=== PATIENT | female | born 1980 | race Caucasian/White ===

== ENCOUNTER → 2016-07-28 12:50 | Outpatient (CLI) | payer MEDICAID | END | disposition home or self-care (01) | LOC: D.RAD 12:50 | DX: M54.2 Cervicalgia (principal) ==

== ENCOUNTER → 2016-11-07 09:46 | Outpatient (CLI) | payer MEDICAID | END | disposition home or self-care (01) | LOC: D.MRI 10-31 15:30 | DX: M54.12 Radiculopathy, cervical region (principal) ==

== ENCOUNTER 2018-11-08 23:41 | Emergency (ER) | payer MEDICAID ==
[2018-11-08 23:54] VITALS: BP 111/76; BMI 20.9
[2018-11-08] MEDS ORDERED: KLONOPIN1 MG PO (23:57)
[2018-11-08] MEDS ORDERED: ZANTAC300 MG PO (23:57)
[2018-11-09 00:50] LABS: BASOPHILS 0.4 % (0-2); EOSINOPHILS 3.3 % (0-7); HEMATOCRIT 37.7 % (36.0-48.0); IMMATURE GRANULOCYTES 0.2 % (0-5); LYMPHOCYTES 35.1 % (15-50); MCHC 34.5 g/dL (31.0-37.0); MEAN PLATELET VOLUME 10.1 fL (7.4-10.4); MONOCYTES 8.1 % (2-11); NEUTROPHILS 52.9 % (40-80); PLATELET COUNT 264 10x3/uL (130-400); RBC 4.19 10x6/uL (4.00-5.40); WBC 9.9 10x3/uL (4.8-10.8)
[2018-11-09 01:09] LABS: ALKALINE PHOSPHATASE 38 U/L (46-116); ALT (SGPT) 11 U/L (10-68); BILIRUBIN - TOTAL 0.41 mg/dL (0.2-1.3); CALC OSMOLALITY 280 mosm/kg (275-300); CALCIUM 9.2 mg/dL (8.5-10.1); CARBON DIOXIDE 23.6 mmol/L (21.0-32.0); CHLORIDE - SERUM 105 mmol/L (98-107); CREATININE - SERUM 0.8 mg/dL (0.6-1.3); GLUCOSE 105 mg/dL (74-106); POTASSIUM - SERUM 3.7 mmol/L (3.5-5.1); PROTEIN - SERUM 7.7 g/dL (6.4-8.2); SODIUM 140 mmol/L (136-145); UREA NITROGEN 17 mg/dL (7-18); eGFR NON AFRICAN AMERICAN 86 mL/min (90-120)
[2018-11-09 01:26] LABS: APPEARANCE CLOUDY (CLEAR); BILIRUBIN NEGATIVE (NEGATIVE); COLOR YELLOW (YELLOW); GLUCOSE NEGATIVE (NEGATIVE); KETONE SMALL mg/dL (NEGATIVE); NITRITE POSITIVE (NEGATIVE); PROTEIN NEGATIVE (NEGATIVE); UROBILINOGEN NORMAL (NORMAL)
[2018-11-09 01:27] LABS: BACTERIA MANY /hpf (NONE SEEN); EPITHELIAL CELLS NSEEN /hpf (0-5); RED CELLS - URINE 0-5 /hpf (0-5)
[2018-11-09] MEDS ORDERED: MACROBID100 MG PO (01:47)
== END 2018-11-09 02:06 | disposition home or self-care (01) ==
LOC: D.ER 23:41
PROVIDERS: Emergency Medicine
DX: N30.90 Cystitis, unspecified without hematuria (principal); R82.90 Unspecified abnormal findings in urine